=== PATIENT | male | born 1950 | race Caucasian/White ===

== ENCOUNTER 2016-12-15 08:17 | Day surgery (SDC) | payer OTHER ==
[2016-12-15] MEDS ORDERED: ATROPINE SULFATE 1 MG/10 ML SYR ONE (08:30)
[2016-12-15] MEDS ORDERED: LIDOCAINE HCL ONE (08:30)
[2016-12-15] MEDS ORDERED: NALOXONE HCL 2 MG/2 ML SYR ONE (08:31)
[2016-12-15] MEDS ORDERED: FLUMAZENIL 0.5 MG/5 ML VIAL IV ONE (08:31)
[2016-12-15] MEDS ORDERED: NITROGLYCERIN 0.4 MG TAB.SUBL SUBLINGUAL ONE (08:31)
[2016-12-15] MEDS ORDERED: MIDAZOLAM HCL 2 MG/2 ML SYR ONE (08:32)
[2016-12-15] MEDS ORDERED: FENTANYL 100 MCG/2 ML VIAL ONE (08:33)
== END 2016-12-15 10:04 | disposition home or self-care (01) ==
LOC: SDS 08:17
PROVIDERS: ATTEND Internal Medicine Cardiovascular Disease
DX: I34.0 Nonrheumatic mitral (valve) insufficiency (principal); E78.00 Pure hypercholesterolemia, unspecified; I49.3 Ventricular premature depolarization; Z79.899 Other long term (current) drug therapy
CPT/HCPCS: 93312; 93321; 93325; J0461; J2250; J2310